=== PATIENT | male | born 1965 | race Caucasian/White ===

== ENCOUNTER 2023-11-23 14:35 | Outpatient (CLI) | payer BC ==
[~2023-11-23 14:35] MED LIST: Iopamidol 300 61% 100 ML VIAL FS ONE
== END 2023-11-23 14:36 | disposition home or self-care (01) ==
LOC: CSHCT 14:35
PROVIDERS: ATTEND Nurse Practitioner Family
DX: N28.9 Disorder of kidney and ureter, unspecified (principal); N20.0 Calculus of kidney; K57.30 Diverticulosis of large intestine without perforation or abscess without bleeding
CPT/HCPCS: 74178; Q9967